=== PATIENT | male | born 1990 | race Caucasian/White ===

== ENCOUNTER 2016-10-16 00:22 | Inpatient (IN) | payer SELFPAY ==
[~2016-10-16] VITALS: Ht 188 cm; Wt 94.3 kg
[2016-10-16] MEDS ORDERED: VANCOMYCIN 1 GM in IV D5W 250 ML IV ONE (01:00)
--- NOTE | 2016-10-16 01:00 | NUR ---
PT A/OX4 BREATHING EFFORTLESSLY ON ROOM AIR, PT STATES HE HAS HAD AN ABSCESS ON HIS LEFT KNEE X 3 DAYS AND STATES HE HAS BEEN PUTTING NEOSPORIN ON IT BUT IT HAS NOT GOTTEN BETTER, IV PLACED LABS DRAWN, PT ON MONITOR, MD MADE AWARE WILL CONTINUE TO MONITOR.
[2016-10-16] MEDS ORDERED: IV SET PRIMARY PUMP SET 1 EA INFUS.SET MC ONE ×2 (01:06→14:01)
[2016-10-16] MEDS ORDERED: VANCOMYCIN 1 GM VIAL ONE (01:06)
[2016-10-16 01:25] LABS: BASOPHILS % (AUTO) 0.7 % (0.0-2.0); EOSINOPHILS % (AUTO) 0.3 % (0.0-6.0); HEMATOCRIT 40 % (39-51); HEMOGLOBIN 13.8 g/dL (13.5-17.5); LYMPHOCYTES # (AUTO) 2.4 /CMM (0.8-4.8); LYMPHOCYTES % (AUTO) 36.7 % (20.0-44.0); MEAN CORPUSCULAR HEMOGLOBIN 31 PG (26.0-33.0); MEAN CORPUSCULAR HGB CONC 34 g/dl (31.0-36.0); MEAN CORPUSCULAR VOLUME 89 fL (80-96); MONOCYTES # (AUTO) 0.7 /CMM (0.1-1.30); MONOCYTES % (AUTO) 10.5 % (2.0-12.0); NEUTROPHILS # (AUTO) 3.4 /CMM (1.8-8.9); NEUTROPHILS % (AUTO) 51.8 % (43.0-81.0); PLATELET COUNT (AUTO) 169 /CMM (150-450); RDW COEFFICIENT OF VARIATION 12.1 (11.5-15.0); RED BLOOD CELL COUNT(AUTO) 4.51 MIL/uL (4.5-6.0); WHITE BLOOD COUNT (AUTO) 6.6 K/uL (4.3-11.0)
[2016-10-16 01:36] LABS: CALCIUM, SERUM 8.6 mg/dL (8.5-10.1); POTASSIUM 3.5 mmol/L (3.5-5.1)
[2016-10-16 02:20] VITALS: BP 134/69
[2016-10-16 03:00] VITALS: BP 134/69
--- NOTE | 2016-10-16 03:25 | NUR ---
RN ADMITTING INITIAL NOTE RECEIVED PT IN NO ACUTE DISTRESS VIA [facility] 0220 ACLS PROTOCOL PT IS A/O X 34 AND ABLE TO MAKE NEEDS KNOWN. PT IS ON RA AND TOLERATING WELL WITH O2 SAT @ 99%. IV SITE AT RAC #18 INTACT WITH NO S/S OF INFILTRATION NOTED. HEAD TO TOE ASSESSMENT IS DONE, SKIN IS INTACT SWELLING OF LEFT KNEE NOTED. BED IN LOW LOCK POSITION WITH RAILS UP X 2. CALL LIGHT WITHIN REACH AND ALL SAFETY MEASURES ENSURED AND CARRIED OUT. WILL CONTINUE TO MONITOR PT. Addendum: 10/16/16 at 0327 by LAURA DUKES RN PATIENT A/O X 4
[2016-10-16] MEDS ORDERED: MAGNESIUM HYDROXIDE 30 ML UDC PO PRN (03:30)
[2016-10-16] MEDS ORDERED: ACETAMINOPHEN 325 MG TABLET PO PRN (03:30)
[2016-10-16] MEDS ORDERED: ZOLPIDEM TARTRATE 5 MG TABLET PO PRN (03:30)
[2016-10-16] MEDS ORDERED: Z GUARD REMEDY 2 OZ OINT TP PRN (03:30)
[2016-10-16] MEDS ORDERED: MAG HYDROX/AL HYDROX/SIMETH 30 ML UDC PO PRN (03:30)
[2016-10-16] MEDS ORDERED: ONDANSETRON HCL/PF 4 MG/2 ML VIAL IVP PRN (03:30)
[2016-10-16] MEDS ORDERED: HYDROCODONE/APAP 5/325MG 1 EACH TABLET PO PRN (03:30)
--- NOTE | 2016-10-16 06:28 | NUR ---
MS RN CLOSING NOTES PATIENT COMFORTABLY ASLEEP AND EASILY AWAKEN, HEAD OF BED ELEVATED FOR BETTER LUNG EXPANSION TOLERATING ROOM AIR 02 SAT AT 98% IV SITE INTACT W/ NO S/S OF INFILTRATION PATENT AND FLUSHED, PATIENT DENIES PAIN AT THIS TIME. 0/10 RESPIRATIONS EVEN AND UNLABORED. LUNG SOUNDS CLEAR UPON AUSCULTATION, NO S/S OF ACUTE DISTRESS, NO SOB, NO COUGH, NO CONGESTION, SKIN WARM AND DRY TO TOUCH, AFEBRILE, ALL NURSING CARE NEEDS PROVIDED AND RENDERED, NEEDS ATTENDED AND ANTICIPATED, KEPT CLEAN AND DRY AND COMFORTABLE, GOOD SKIN ARE PROVIDED. NO C/O OF CONSTIPATION. ALL DUE MEDS WAS GIVEN TOLERATED. FREQUENT VISUAL CHECK DONE FOR SAFETY EVERY 2 HOURS. SAFE HAZARD FREE ENVIRONMENT PROVIDED. CALL LIGHT WITHIN EASY TO REACH, ON LOW BED AT ALL TIMES TO ENSURE SAFETY, WILL ENDORSE TO THE NEXT SHIFT CONTINUE PLAN OF CARE. Addendum: 10/16/16 at 0723 by LAURA DUKES RN ADDENDUM: PATIENT REFUSED TO TAKE SHORT OFF PER PATIENT HE DOESN'T HAVE ANY SKIN ISSUES OR BRUISES RISKS AND BENEFITS EXPLAINED OFFERED 3 TIMES STILL REFUSING TO TAKE SHORT OFF. MADE AWARE.
--- NOTE | 2016-10-16 07:25 | NUR ---
RN NOTES PATIENT RECEIVED RESTING COMFORTABLY IN BED, EASILY AROUSABLE DURING CARE A/0 X4. RESPIRATIONS EVEN AND UNLABORED, DENIES ANY PAIN OR DISCOMFORT. IV ACCESS PATENT AND INTACT NO REDNESS OR INFILTRATION NOTED. KEPT CLEAN AND DRY WILL CONTINUE TO MONITOR
[2016-10-16 08:00] VITALS: BP 131/79
[2016-10-16] MEDS: PANTOPRAZOLE 40 MG TABLET.DR PO SCH (08:01)
[2016-10-16] MEDS ORDERED: SECONDARY IV SET 1 EA INFUS.SET MC ONE (14:01)
[2016-10-16] MEDS ORDERED: IV NS 0.9% 250 ML IV ONE (14:01)
[2016-10-16] MEDS: CEFTRIAXONE 1 G in IV D5W 50 ML IV SCH (14:09)
[2016-10-16 16:00] VITALS: BP 130/74
--- NOTE | 2016-10-16 19:06 | NUR ---
RN NOTES PATIENT RESTING COMFORTABLY IN BED, EASILY AROUSABLE DURING CARE A/0 X4. RESPIRATIONS EVEN AND UNLABORED, DENIES ANY PAIN OR DISCOMFORT. IV ACCESS PATENT AND INTACT NO REDNESS OR INFILTRATION NOTED. KEPT CLEAN AND DRY WILL CONTINUE TO MONITOR AND ENDORSE TO NEXT SHIFT FOR CONTINUITY OF CARE
--- NOTE | 2016-10-16 19:45 | NUR ---
MS RN INITIAL NOTES PATIENT RECEIVED RESTING COMFORTABLY IN BED, EASILY AROUSABLE DURING CARE A/0 X4. RESPIRATIONS EVEN AND UNLABORED, DENIES ANY PAIN ONLY MILD DISCOMFORT IN LEFT KNEE, REFUSES PAIN MEDS. IV ACCESS PATENT AND INTACT NO REDNESS OR INFILTRATION NOTED. KEPT CLEAN AND DRY. WILL CONTINUE TO MONITOR
[2016-10-16 20:00] VITALS: BP 146/67
--- NOTE | 2016-10-17 06:48 | NUR ---
MS RN CLOSING NOTES PATIENT RESTING COMFORTABLY IN BED, EASILY AROUSABLE DURING CARE A/0 X4. RESPIRATIONS EVEN AND UNLABORED, DENIES ANY PAIN OR DISCOMFORT. IV ACCESS CHANGED TO LEFT UPPER ARM, PATENT AND INTACT SALINE FLUSH. LEFT KNEE PICTURES WERE TAKEN AND PUT IN CHART. POSSIBLE D/C. KEPT CLEAN AND DRY WILL CONTINUE TO MONITOR AND ENDORSE TO DAY SHIFT.
--- NOTE | 2016-10-17 07:30 | NUR ---
AM RN NOTE Received patient sleeping comfortably in his bed, no acute distress noted. No SOB noted resp even and non-labored. IV site intact and patent. Will continue to monitor.
[2016-10-17 07:44] LABS: BASOPHILS % (AUTO) 0.5 % (0.0-2.0); EOSINOPHILS % (AUTO) 0.3 % (0.0-6.0); HEMATOCRIT 41 % (39-51); HEMOGLOBIN 14.2 g/dL (13.5-17.5); LYMPHOCYTES # (AUTO) 2.1 /CMM (0.8-4.8); LYMPHOCYTES % (AUTO) 32.9 % (20.0-44.0); MEAN CORPUSCULAR HEMOGLOBIN 31 PG (26.0-33.0); MEAN CORPUSCULAR HGB CONC 35 g/dl (31.0-36.0); MEAN CORPUSCULAR VOLUME 89 fL (80-96); MONOCYTES # (AUTO) 0.7 /CMM (0.1-1.30); MONOCYTES % (AUTO) 10.9 % (2.0-12.0); NEUTROPHILS # (AUTO) 3.5 /CMM (1.8-8.9); NEUTROPHILS % (AUTO) 55.4 % (43.0-81.0); PLATELET COUNT (AUTO) 164 /CMM (150-450); RED BLOOD CELL COUNT(AUTO) 4.62 MIL/uL (4.5-6.0); WHITE BLOOD COUNT (AUTO) 6.3 K/uL (4.3-11.0)
[2016-10-17 08:00] VITALS: BP 120/63
[2016-10-17 08:00] LABS: CALCIUM, SERUM 8.9 mg/dL (8.5-10.1); MAGNESIUM 1.7 mg/dL (1.8-2.4); PHOSPHORUS 4.2 mg/dL (2.5-4.9); POTASSIUM 4.1 mmol/L (3.5-5.1)
[2016-10-17] MEDS: PANTOPRAZOLE 40 MG TABLET.DR PO SCH (08:37)
[2016-10-17] MEDS ORDERED: SECONDARY IV SET 1 EA INFUS.SET MC ONE (11:11)
[2016-10-17] MEDS: Magnesium 1GM/D5W 100ML PREMIX 100 ML IV SCH ×2 (11:17→12:37)
--- NOTE | 2016-10-17 13:00 | NUR ---
AM RN NOTE Patient awake, A/O X4 verbally responsive. Seen and assessed by Dr. Dalton with discharge home order. Discharge instructions on medications & teachings given and pt verbalize understanding. Belongings endorsed and signed.
[2016-10-17] MEDS: CEFTRIAXONE 1 G in IV D5W 50 ML IV SCH (13:38)
--- NOTE | 2016-10-17 14:30 | NUR ---
AM RN NOTE Patient awake, A/O X4. Denies any pain or discomfort at this time. Mg and IV ATB given. HL and ID band removed. Pt stated he will be going home by himself. CN made aware. Pt discharged/ left unit at this time as accompanied by 1 C[employer]ER [employer]INT [employer]ICE SUPER[employer]OR to downstairs with all his belongings.
== END 2016-10-17 14:25 | disposition home or self-care (01) | DRG 603 ==
LOC: ER 00:22 → MED 01:50
PROVIDERS: ADMIT Internal Medicine; ATTEND Internal Medicine
DX: L03.116 Cellulitis of left lower limb (principal); L02.416 Cutaneous abscess of left lower limb
CPT/HCPCS: 36415; 76882; 80048-TC; 83605-TC; 83735-TC; 84100-TC; 85025-TC; 87040-TC; 87081-TC; A4606; J0696; J3370; J3475; J7050; J7060; Z7610